=== PATIENT | female | born 2005 ===

== ENCOUNTER 2025-09-01 07:56 | Outpatient (CLI) | payer OTHER, SELFPAY ==
--- NOTE | 2025-09-01 08:15 | CRLHL7_ITS ---
For Patients: As a result of the Cures Act, medical imaging exams and procedure reports are released immediately into your electronic medical record. You may view this report before your referring provider. If you have questions, please contact your health care provider. Indication: PALPABLE AND PAINFUL LUMP Technique: Grayscale ultrasound of the right axilla. Comparison: None Findings: Normal subcutaneous tissues. No adenopathy. No abscess. Impression: Negative targeted right axilla. Dictated by Chip Hassan MD @ 09/01/2025 10:04:44 AM (Electronically Signed)
== END 2025-09-01 07:57 | disposition home or self-care (01) ==
PROVIDERS: Visit Provider Internal Medicine
DX: N63.31 Unspecified lump in axillary tail of the right breast (principal)
CPT/HCPCS: 76882